=== PATIENT | male | born 2005 | race African-American/Black ===

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

== ENCOUNTER 2023-01-14 20:40 | Emergency (ER) | payer OTHER, SELFPAY ==
[2023-01-14] MEDS ORDERED: Ibuprofen 200 MG TAB ONE ×2 (21:03→21:07)
== END 2023-01-14 22:04 | disposition home or self-care (01) ==
LOC: CSHERS 20:40
DX: M25.511 Pain in right shoulder (principal); V49.50XA Passenger injured in collision with unspecified motor vehicles in traffic accident, initial encounter